=== PATIENT | female | born 1955 | race Two or more races ===

== ENCOUNTER 2017-04-07 23:55 | Inpatient (IN) | payer MEDICARE, MEDICAID ==
[2017-04-08 00:47] VITALS: BP 152/73
[2017-04-08] MEDS ORDERED: Morphine Sulfate 2 mg/mL 1mL Syr IVP PRN (00:54)
[2017-04-08] MEDS ORDERED: Sodium Chloride 0.9% 1,000 ML IV SCH (01:12)
[2017-04-08] MEDS: INSULIN ASPART SLIDING SCALE 100 UNITS/ML UNIT SUBQ SCH ×4 (02:01→18:18)
[2017-04-08 07:12] LABS: % MONOCYTES 7.9 % (2.0-10.0); % NEUTROPHILS 65.1 % (40.0-80.0); HEMATOCRIT 38.8 % (35.0-45.0); HEMOGLOBIN 12.9 gm/dL (11.7-15.5); MEAN CORPUSCULAR HEMOGLOBIN 28.9 pg (27.0-31.0); MEAN CORPUSCULAR HGB CONC 33.2 pg (28.0-36.0); MEAN PLATELET VOLUME 8.8 fl; NEUTROPHILE ABSOLUTE 5.5 Th/cmm (1.8-8.0); PLATELET COUNT 232 Th/cmm (150-400); RED BLOOD COUNT 4.46 Mil/cmm (3.80-5.10); RED CELL DISTRIBUTION WIDTH 12.7 % (11.5-20.0); WHITE BLOOD COUNT 8.6 Th/cmm (4.8-10.8)
[2017-04-08] MEDS ORDERED: Levothyroxine 0.125 Mg Tab PO SCH (07:30)
[2017-04-08 07:37] LABS: ALB/GLOB RATIO 1.1 (1.0-1.8); ALKALINE PHOSPHATASE 81 U/L (34-104); ANION GAP 8.3 (7.0-16.0); BILIRUBIN,TOTAL 0.4 mg/dL (0.3-1.0); BUN - UREA NITROGEN 18 mg/dL (7-25); CALCIUM SERUM 8.9 mg/dL (8.6-10.3); CARBON DIOXIDE 27.5 mEq/L (21.0-31.0); CHLORIDE 99 mEq/L (98-107); CREATININE - SERUM 0.6 mg/dL (0.6-1.2); GLUCOSE 325 mg/dL (70-105); POTASSIUM SERUM 3.8 mEq/L (3.5-5.1); SGOT 23 U/L (13-39); SGPT/ALT 31 U/L (7-52); SODIUM SERUM 131 mEq/L (136-145)
--- NOTE | 2017-04-08 08:46 | History and Physical ---
History of Present Illness - HPI Chief Complaint: Chest pain HPI: Patient refer that x 3 months she has having Chest pain, yesterday pain increased and hao decided to come to ER for evaluation. Vital Signs: Last Vital Signs Temp 97.9 F 04/08/17 04:13 Pulse 84 04/08/17 04:13 Resp 19 04/08/17 04:13 BP 128/68 04/08/17 04:13 Pulse Ox 95 04/08/17 04:13 Past Medical History Cardiovascular: Report: CAD, HTN Pulmonary: Report: No Pertinent Hx FLOORPERSON: Report: No Pertinent Hx GI: Report: No Pertinent Hx Psych: Report: No Pertinent Hx Musculoskeletal: Report: No Pertinent Hx Rheumatologic: Report: No pertinent Hx Infectious Disease: Report: No Pertinent Hx Renal/: Report: No Pertinent Hx Endocrine: Report: Diabetes, Hypothyroidism, Other (Dyslipemia) Other History: S/P mastectomy due to breast Ca. - Past Surgical History Past Surgical History: Other (Right mastectomy) Family Medical History - Family Member Mother History Unknown: Yes Social History Smoke: No Alcohol: None Drugs: None Lives: Alone Domestic Violence: Negative Health Maintenance Health Maintenance: Cholesterol - Medications Home Medications: Home Medication Medication Instructions Recorded Type Insulin Aspart Sliding Scale See Protocol BID 04/08/17 History [NovoLOG INSULIN SLIDING SCALE] Levothyroxine [Synthroid] 0.125 mg PO DAILY 04/08/17 History Metoprolol Tartrate [Lopressor] 50 mg PO DAILY 04/08/17 History Simvastatin [Zocor*] 20 mg PO DAILY 04/08/17 History - Allergies Allergies/Adverse Reactions: Allergies Allergy/AdvReac Type Severity Reaction Status Date / Time Iodine and Iodide Containing Allergy Verified 04/08/17 00:24 Produc Penicillins Allergy Verified 04/08/17 00:24 Review of Systems - Review of Systems Constitutional: Report: No Significant Eyes: Report: No Significant ENT: Report: No Significant Respiratory: Report: No Significant Cardiovascular: Report: No Significant Gastrointestinal: Report: No Significant Genitourinary: Report: No Significant Musculoskeletal: Report: Shoulder Pain, Other (and chest pain) Skin: Report: No Significant Neurological: Report: No Significant Physical Exam - Physical Exam HEENT: Report: Ears Nose Throat within normal limits Neck: Report: Within normal limits Cardiovascular Systems: Report: Regular, Rate and Rhythm Respiratory: Report: Breath Sounds are within normal limits Abdomen: Report: Non-tender to palpation Back: Report: Inspection of back is within normal limits. Extremities: Report: Non-tender to palpation. Skin: Report: Color of skin is within normal limits Neuro/Psych: Report: Mood affect is within normal limits Other Systems Exam: There is pain at palpation in frontal costal area and left breast. - Lab Results All Lab Results last 24 hours: Laboratory Last Values WBC 8.6 Th/cmm (4.8-10.8) 04/08/17 06:44 RBC 4.46 Mil/cmm (3.80-5.10) 04/08/17 06:44 Hgb 12.9 gm/dL (11.7-15.5) 04/08/17 06:44 Hct 38.8 % (35.0-45.0) 04/08/17 06:44 MCV 87.0 fl (81-100) 04/08/17 06:44 MCH 28.9 pg (27.0-31.0) 04/08/17 06:44 MCHC Differential 33.2 pg (28.0-36.0) 04/08/17 06:44 RDW 12.7 % (11.5-20.0) 04/08/17 06:44 Plt Count 232 Th/cmm (150-400) 04/08/17 06:44 MPV 8.8 fl 04/08/17 06:44 Neutrophils % 65.1 % (40.0-80.0) 04/08/17 06:44 Lymphocytes % 23.0 % (20.0-50.0) 04/08/17 06:44 Monocytes % 7.9 % (2.0-10.0) 04/08/17 06:44 Eosinophils % 3.0 % (0.0-5.0) 04/08/17 06:44 Basophils % 1.0 % (0.0-2.0) 04/08/17 06:44 Sodium 131 mEq/L (136-145) L 04/08/17 06:44 Potassium 3.8 mEq/L (3.5-5.1) 04/08/17 06:44 Chloride 99 mEq/L (98-107) 04/08/17 06:44 Carbon Dioxide 27.5 mEq/L (21.0-31.0) 04/08/17 06:44 Anion Gap 8.3 (7.0-16.0) 04/08/17 06:44 BUN 18 mg/dL (7-25) 04/08/17 06:44 Creatinine 0.6 mg/dL (0.6-1.2) 04/08/17 06:44 Est GFR ( Amer) > 60.0 ml/min (>90) 04/08/17 06:44 Est GFR (Non-Af Amer) > 60.0 ml/min 04/08/17 06:44 BUN/Creatinine Ratio 30.0 04/08/17 06:44 Glucose 325 mg/dL (70-105) H 04/08/17 06:44 POC Glucose 283 MG/DL (70 - 105) H 04/08/17 06:07 Hemoglobin A1c % 12.5 % (4.0-6.0) H 04/08/17 06:44 Calcium 8.9 mg/dL (8.6-10.3) 04/08/17 06:44 Total Bilirubin 0.4 mg/dL (0.3-1.0) 04/08/17 06:44 AST 23 U/L (13-39) 04/08/17 06:44 ALT 31 U/L (7-52) 04/08/17 06:44 Alkaline Phosphatase 81 U/L (34-104) 04/08/17 06:44 Total Protein 7.4 gm/dL (6.0-8.3) 04/08/17 06:44 Albumin 3.9 gm/dL (3.7-5.3) 04/08/17 06:44 Globulin 3.5 gm/dL 04/08/17 06:44 Albumin/Globulin Ratio 1.1 (1.0-1.8) 04/08/17 06:44 Laboratory Results - last 24 hr 04/08/17 04/08/17 04/08/17 01:18 06:07 06:44 WBC 8.6 RBC 4.46 Hgb 12.9 Hct 38.8 MCV 87.0 MCH 28.9 MCHC Differential 33.2 RDW 12.7 Plt Count 232 MPV 8.8 Neutrophils % 65.1 Lymphocytes % 23.0 Monocytes % 7.9 Eosinophils % 3.0 Basophils % 1.0 Sodium Potassium Chloride Carbon Dioxide Anion Gap BUN Creatinine Est GFR ( Amer) Est GFR (Non-Af Amer) BUN/Creatinine Ratio Glucose POC Glucose 330 H 283 H Hemoglobin A1c % Calcium Total Bilirubin AST ALT Alkaline Phosphatase Total Protein Albumin Globulin Albumin/Globulin Ratio 04/08/17 04/08/17 06:44 06:44 WBC RBC Hgb Hct MCV MCH MCHC Differential RDW Plt Count MPV Neutrophils % Lymphocytes % Monocytes % Eosinophils % Basophils % Sodium 131 L Potassium 3.8 Chloride 99 Carbon Dioxide 27.5 Anion Gap 8.3 BUN 18 Creatinine 0.6 Est GFR ( Amer) > 60.0 Est GFR (Non-Af Amer) > 60.0 BUN/Creatinine Ratio 30.0 Glucose 325 H POC Glucose Hemoglobin A1c % 12.5 H Calcium 8.9 Total Bilirubin 0.4 AST 23 ALT 31 Alkaline Phosphatase 81 Total Protein 7.4 Albumin 3.9 Globulin 3.5 Albumin/Globulin Ratio 1.1 - Assessment Assessment: Patient is awake, alert, calm in no acute distress. Dx: Chest pain with normal troponins, DM, HTN, Hypothyroidism, Dyslipemia, S/P breast Ca. - Plan Plan: Patient is in aspirin, IV NS, Morphine, Metoprolol, Statin. Awaiting Cardio evaluation. Will continue to monitor.
--- NOTE | 2017-04-09 05:48 | Consultation ---
DATE OF CONSULTATION: 04/08/2017 PATIENT OF: Dr. Jeremías Oreilly HISTORY AND PHYSICAL: This 61-year-old morbidly obese female patient who has been complaining of chest pain for 3 months, which gradually deteriorated. At this time, the patient had no chest pain with difficulty breathing. At this time, the patient was taken to the Emergency Room at [facility]. The patient was evaluated, stabilized, and transferred to [facility] due to insurance reasons. PAST MEDICAL HISTORY: 1. Chest pain. 2. Hypertension, diabetes, hyperlipidemia, insulin dependent diabetes mellitus, breast cancer with mastectomy, cholelithiasis, osteoporosis, and hypothyroidism. FAMILY HISTORY: Unremarkable. SOCIAL HISTORY: No history of smoking or alcohol abuse. ALLERGIES: No known allergies. PHYSICAL EXAMINATION: VITAL SIGNS: Blood pressure 130/70, pulse 70, respirations 20. HEAD: Normocephalic. No lumps or bumps. EYES: Pupils equal, reactive to light. Fundi show AV nicking, sclerae white, conjunctivae pink. NECK: Carotid 2+. Normal upstroke. JVD flat. Thyroid not palpable. Lymph nodes not palpable. CHEST: Shows increased AP diameter. No kyphosis, scoliosis. LUNGS: Bilateral bronchovesicular breath sounds. Occasional wheeze. No rales. HEART: PMI fifth intercostal space ____ lateral to midclavicular line. S1, S2. No S3, S4, soft systolic murmur. ABDOMEN: Soft. Liver, spleen not palpable. No organomegaly. Bowel sounds are active. NEUROLOGIC: Unremarkable. EXTREMITIES: Peripheral pulses 2+. No pedal edema. The patient has chest wall pain with costochondral pains in the left second, third, and fourth ribs. CLINICAL IMPRESSION: Chest pain, unlikely coronary artery disease, costochondritis, hypertension, diabetes, insulin dependent diabetes mellitus, hyperlipidemia, morbid obesity, breast cancer with mastectomy, cholelithiasis, osteoporosis, hypothyroidism, and gastroesophageal reflux disease. PLAN: Admit the patient. We will get troponin level. EKG, echocardiogram. Monitor the patient on telemetry bed. JOB# [id number]
--- NOTE | 2017-04-09 15:44 | Cardiology ---
04/08/2017 M-MODE ECHOCARDIOGRAM: Mitral valve, anterior leaflet of the mitral valve shows normal excursion, EF velocity. Posterior leaflet of the mitral valve shows normal excursion. Left ventricular posterior wall shows increased thickness, normal excursion. Interventricular septum shows increased thickness, normal excursion, hypertrophy of the left ventricle, ejection fraction 60%. Left atrium normal. Aortic root shows normal dimension, normal excursion of aortic leaflets. CONCLUSION: Hypertrophy of the left ventricle, ejection fraction 60%. 2D ECHO: Long axis view showed normal sized left ventricle with hypertrophy of the left ventricle. Left atrium normal. Aortic root shows normal dimension, normal excursion of aortic leaflets. Short axis view of mitral valve normal. Short axis view of aortic valve normal. Apical four chamber view showed normal sized left ventricle with hypertrophy of the left ventricle. Left atrium normal. Right ventricular cavity, right atrium normal. No pericardial effusion. CONCLUSION: Hypertrophy of the left ventricle, ejection fraction 60%. Doppler study showed mild tricuspid regurgitation, prominent A wave consistent with poor compliance of left ventricle. [facility]# [id number]
--- NOTE | 2017-04-10 05:00 | Admit Criteria Form ---
Admit Criteria Forms - Admit Criteria Diagnosis: CARDIOLOGY GRG Clinical Indications for Admission to Inpatient Care ( Place 'X' for any and all applicable criteria): Hospital admission is needed for appropriate care of the patient because of ANY ONE of the following (1): [ ] I. Hemodynamic instability as indicated by ALL of the following (1)(2)(3) (4)(5) [ ]a) Vital signs or other findings not as expected for chronic patient condition or baseline [ ]b) Instability indicated by ANY ONE of the following: [ ]i) Hypotension [ ]ii) Symptomatic Tachycardia unresponsive to treatment ( e.g., analgesia, fluids, sedation as indicated) [ ]iii) Inadequate perfusion indicated by ANY ONE of the following: [ ] 1) Lactic acidosis (> 2 mmol/L) [ ] 2) New abnormal capillary refill (> 3 seconds) [ ] 3) Reduced urine output [ ] 4) New altered mental status [ ]iv) Orthostatic vital sign changes unresponsive to treatment (e.g., fluids) [ ]v) IV inotropic or vasopressor medication required to maintain adequate blood pressure or perfusion [ ] II. Severe heart failure as indicated by ANY ONE of the following(17)(18) [ ]a) Respiratory distress [ ]b) Hypotension [ ]c) Anasarca (refractory to outpatient therapy) [ ]d) Cardiac arrhythmias of immediate concern [ ]e) Myocardial ischemia [ ] III. Cardiac arrhythmias or findings of immediate concern indicated by ANY ONE of the following (19)(20): [ ] a) Heart rhythms that are inherently dangerous or unstable indicated by ANY ONE of the following (21)(22)(23): [ ] i) Resuscitated ventricular fibrillation or cardiac arrest [ ] ii) Ventricular escape rhythm [ ] iii) Sustained ventricular tachycardia (30 seconds or more of ventricular rhythm at greater than 100 beats per minute) [ ] iv) Nonsustained ventricular tachycardia and ANY ONE of the following: [ ] 1) Suspected cardiac ischemia as cause or consequence of ventricular tachycardia [ ] 2) In setting of acute myocarditis [ ] b) Unstable cardiac conduction defects indicated by ANY ONE of the following(23)(24)(25) [ ] i) Type II second-degree atrioventricular block [ ]ii) Third-degree atrioventricular block [ ]iii) New-onset left bundle branch block with suspected myocardial ischemia [ ]c) Any heart rhythm and ANY ONE of the following (21)(22)(26)(27) (28) [ ] i) Continuous long-term ECG monitoring needed (e.g., initiation of drug requiring monitoring for more than 24 hours) [ ] ii) Patient has automatic implanted cardioverter defibrillator that is repeatedly firing, malfunctioning, or in need of immediate adjustment of settings beyond the scope of ambulatory or observation care [ ]d) Heart rhythms of concern due to ANY ONE of the following: [ ] i) Hypotension [ ] ii) Respiratory distress [ ] iii) Association with other significant symptoms (e.g., bradycardia with syncope or ongoing dizziness, supraventricular tachycardia with chest pain (14)(15)(17) [ ] IV. Monitoring for cardiac contusion beyond the scope of observation care needed [A](30)(31)(32) [ ] V. Surgical or device complication (e.g., valve replacement complication , pacemaker dysfunction) (35)(41)(44)(45)(46) [ ] . Inpatient palliative care needed. [B](49) Also use Inpatient Palliative Care Criteria [ ] VII. Nonbacterial thrombotic (marantic) endocarditis (36)(43)(47)(48) [X ] VIII. Cardiology condition, symptom, or finding for which emergency and observation care has failed or are not considered appropriate. [ ] IX. Acute valvular disease requiring inpatient as indicated by ANY ONE of the following (41) [ ]a) Acute valvular regurgitation (42) [ ]b) Noninfectious valvulitis (43) [ ]c) Obstructive valve thrombosis [ ]d) Paravalvular leak [ ]e) Other significant valvular disorder remaining after emergency or observation level of care (as appropriate) [ ]X. Pericardial disease requiring inpatient treatment as indicated by ANY ONE of the following (33)(34)(35)(36)(37) [ ]a) Suspected tamponade (38)(39)(40) [ ]b) Hemopericardium [ ]c) Other significant pericardial disorder remaining after emergency or observation level of care (as appropriate) [ ] XI. Cardiac ischemia beyond scope of emergency and observation care. [ ] XII. Hypertension requiring inpatient treatment as indicated by ANY ONE of the following (6)(7)(8) [ ]a) SBP greater than 220 mm Hg or DBP greater than 120 mmHg despite treatment [ ]b) SBP greater than 140 mm Hg or DBP greater than 100 mm Hg with evidence of acute end organ damage as indicated by ANY ONE of the following [ ] i) Altered mental status [ ] ii) Acute renal failure as indicated by new onset of ANY ONE of the following (9)(10)(11)(12)(13) [ ]1) 3-fold rise in serum creatinine from baseline [ ]2) Serum creatinine greater than 4 mg/dL ( 354 micromoles/L) with acute rise greater than 0.5 mg/dL (44.2 micromoles/L) [ ]3) Reduction of more than 75% in estimated glomerular filtration rate from baseline [ ]4) Estimated glomerular filtration rate less than 35 mL/min/1.73m2 (0.59 mL/sec/1.73m2) in child up to 18 years of age [ ]5) Cessation of urine output indicated by ALL of the following [ ]A. Adequate volume status [ ]B. Inadequate urine output as indicated by ANY ONE of the following [ ]a. Urine output less than 0.3 mL/kg/hr for 24 hours [ ]b. Anuria (urine output less than 0.1 mL/kg/hr) for 12 hours [ ] iii) Aortic dissection [ ] iv) Myocardial Ischemia [ ] v) Left ventricular heart failure [ ]vi) Retinal Hemorrhage [ ]vii) Other significant finding [ ]c) Hypertension in child requiring inpatient treatment as indicated by ALL of the following(14)(15)(16) [ ] i) Outpatient treatment not effective, not available , or not appropriate [ ]ii) SBP or DBP greater than 95th percentile for age [ ]iii) Evidence of acute end organ damage as indicated by ANY ONE of the following [ ]1) Altered mental status [ ]2) Acute renal failure as indicated by new onset of ANY ONE of the following(9)(10)(11)(12)(13) [ ]A. 3-fold rise in serum creatinine from baseline [ ]B. Serum creatinine greater than 4 mg/dL (354 micromoles/L) with acute rise greater than 0.5 mg/dL (44.2 micromoles/L) [ ]C. Reduction of more than 75% in estimated glomerular filtration rate from baseline [ ]D. Estimated glomerular filtration rate less than 35 mL/min/1.73m2 (0.59 mL/sec/1.73m2) in child up to 18 years of age [ ]E. Cessation of urine output indicated by ALL of the following [ ]a. Adequate volume status [ ]b. Inadequate urine output as indicated by ANY ONE of the following [ ]i) Urine output less than 0.3 mL/kg/hr for 24 hours [ ]ii) Anuria ( urine output less than 0.1 mL/kg/hr) for 12 hours [ ]3) Severe headache [ ]4) Visual disturbance [ ]5) Retinal hemorrhage [ ]6) Other significant finding [ ]XIII. Complications of transplanted heart indicated by ANY ONE of the following(61): [ ]a) Acute graft rejection requiring inpatient management (eg, intravenous immunosuppression)(62)(63) [ ]b) Acute graft heart failure indicated by ANY ONE of the following(64): [ ]i) Hemodynamic instability [ ]ii) Cardiac arrhythmias of immediate concern [ ]iii) Pulmonary edema that is very severe (eg, mechanical ventilation needed, imminent or likely, need for 100% oxygen to keep oxygen saturation above 90%) [ ]iv) Pulmonary edema that is persistent as indicated by ALL of the following: [ ]1) New need for oxygen therapy to keep oxygen saturation above 90% (or increased FiO2 need from baseline) [ ]2) Has not improved sufficiently with emergency department or observation care IV diuretics or other heart failure treatments[E] [ ]v) Altered mental status that is severe or persistent [ ]vi) Increased creatinine (new on laboratory test) with reduction of more than 50% in estimated glomerular filtration rate from baseline [ ]vii) Progressively (ongoing) rising creatinine (known from past laboratory test) with reduction of more than 25% in estimated glomerular filtration rate from baseline [ ]viii) Acute renal failure [ ]ix) Acute peripheral ischemia (eg, examination shows pulseless, cool, mottled, or cyanotic extremity) [ ]x) Pulmonary artery catheter monitoring needed [ ]xi) Other sign or symptom of heart failure requiring inpatient treatment (ie, too severe or not responsive to outpatient and observation care treatment) [ ]c) Infection requiring inpatient management (eg, Hemodynamic instability, need for intravenous antimicrobial treatment)(66)(67)(68)(69)(70) [ ]d) Cardiac allograft vasculopathy requiring inpatient management ( eg evidence of cardiac ischemia)(71) [ ]e) Other complication of transplanted heart (eg, stroke, severe pulmonary hypertension, severe valvular dysfunction) requiring inpatient management(72) The original [facility] [employer] content created by [facility] [employer] has been revised. The portions of the content which have been revised are identified through the use of italic text or in bold, and [employer] [facility] has neither reviewed nor approved the modified material. All other unmodified content is copyright [facility] [employer]. Please see references footnoted in the original [facility] [employer] edition 2016 Admit Criteria Met?: Yes
== END 2017-04-08 19:25 | disposition home or self-care (01) | DRG 206 ==
LOC: TELE 23:55 → MSI 04-08 19:01
PROVIDERS: ADMIT General Practice; ATTEND General Practice
DX: M94.0 Chondrocostal junction syndrome [Tietze] (principal); Z68.41 Body mass index [BMI] 40.0-44.9, adult; I10 Essential (primary) hypertension; I25.10 Atherosclerotic heart disease of native coronary artery without angina pectoris; E11.9 Type 2 diabetes mellitus without complications; E03.9 Hypothyroidism, unspecified; K21.9 Gastro-esophageal reflux disease without esophagitis; K80.20 Calculus of gallbladder without cholecystitis without obstruction; M81.0 Age-related osteoporosis without current pathological fracture; E66.01 Morbid (severe) obesity due to excess calories; E78.5 Hyperlipidemia, unspecified; Z79.4 Long term (current) use of insulin; Z88.0 Allergy status to penicillin; Z91.041 Radiographic dye allergy status; Z85.3 Personal history of malignant neoplasm of breast; Z90.11 Acquired absence of right breast and nipple
CPT/HCPCS: 36415-UA; 80053-TC; 82948-90; 83036-90; 84484-TC; 85025-TC; J1815; J7030; Z7610